=== PATIENT | female | born 1975 | race Caucasian/White ===

== ENCOUNTER → 2017-12-15 | Outpatient (CLI) | payer OTHER ==
[~2017-12-15] MED LIST: AMOXICILLIN 8751 TAB PO; ASPIRIN 81M81 MG/TA2 PO; CLARITIN10 MG PO; FLINTSTONES1 CTB PO; LORTAB 5/500 501 TAB PO; MOTRIN 600600 MG/TAB PO; VENTOLIN0.09 MG IH; VITAMIN D 400400 IU PO
== END ==
LOC: MC.RAD 08:20
DX: Z12.31 Encounter for screening mammogram for malignant neoplasm of breast (principal)

== ENCOUNTER → 2017-12-23 | Outpatient (CLI) | payer OTHER | LOC: MC.RAD 08:00 | DX: R92.2 Inconclusive mammogram (principal) ==

== ENCOUNTER 2018-11-30 09:00 | Outpatient (RCR) | payer OTHER | END 2018-12-26 16:01 | disposition home or self-care (01) | LOC: MKS.ESL.PT 09:00 | DX: M54.41 Lumbago with sciatica, right side (principal); M25.512 Pain in left shoulder; G89.29 Other chronic pain ==

== ENCOUNTER → 2021-05-13 | Outpatient (CLI) | payer OTHER | LOC: COL.RAD 04-21 08:15 | DX: G25.3 Myoclonus (principal); Q04.9 Congenital malformation of brain, unspecified; G93.0 Cerebral cysts ==

== ENCOUNTER → 2021-06-03 | Outpatient (CLI) | payer OTHER | LOC: COL.CARD 05-13 10:00 | DX: G25.3 Myoclonus (principal) ==

== ENCOUNTER 2022-02-01 06:59 | Emergency (ER) | payer OTHER ==
[~2022-02-01] VITALS: Ht 167.6 cm; Wt 65.9 kg
[2022-02-01 07:03] VITALS: BP 108/72; TEMP 98.1
[2022-02-01] MEDS ORDERED: DOXYCYCLINE 10100 MG PO (07:24)
[2022-02-01 07:30] VITALS: PULSE 69
== END 2022-02-01 07:30 | disposition home or self-care (01) ==
LOC: COL.ER 06:59
DX: S70.362A Insect bite (nonvenomous), left thigh, initial encounter (principal); Z88.8 Allergy status to other drugs, medicaments and biological substances; W57.XXXA Bitten or stung by nonvenomous insect and other nonvenomous arthropods, initial encounter